=== PATIENT | female | born 1990 | race Caucasian/White ===

== ENCOUNTER 2017-02-11 22:30 | Inpatient (IN) | payer MEDICAID, OTHER ==
[~2017-02-11] VITALS: Ht 175.3 cm; Wt 102.6 kg
[~2017-02-11 22:30] MED LIST: ACAR50TA PO; PREN29TA PO; PROT40TA PO; ZOLO50TA PO; iron IV
[2017-02-11 22:33] VITALS: BP 129/91; PULSE 77; RESP 18; TEMP 98.3; O2SAT 97
[2017-02-12] VITALS (12 sets, daily range): BP systolic 113–138; BP diastolic 69–84; PULSE 67–82; RESP 16–18; TEMP 97–98.8; O2SAT 97–100
[2017-02-12] MEDS ORDERED: METF500T PO (00:31)
[2017-02-12] MEDS ORDERED: FOLI1TAB4 PO (00:31)
--- NOTE | 2017-02-12 00:44 | PD ---
HPI Chief Complaint: Abdominal Pain Time Seen by Provider: 00:40 Travel History International Travel<30 days: No Contact w/Intl Traveler<30days: No Traveled to known affect area: No History of Present Illness HPI 26-year-old female presents to the emergency department by private transportation for complaint of umbilical, epigastric, and chest pain. Patient states episode today was moderate to severe 6/10 in intensity. Patient had associated nausea with vomiting of stomach contents. No bilious emesis no coffee-ground emesis no hematemesis. Patient denies diarrhea and has been constipated without melena or hematochezia. Patient denies any dysuria frequency or urgency. Patient's last period was in December and not normal for her but has history of polycystic ovary disease with irregular menses. Patient is sexually active. Patient is 5 months . Patient states that she did have chicken nitrites today but typically has not had issues with gallbladder disease peptic ulcer disease or gastritis in the past. No history of pancreatitis. Patient had gastric sleeve by Dr. Conway February 2015. Patient states had similar less intense and short in duration episodes of umbilical, epigastric, and chest pain 1 week ago. Patient did not contact her surgeon at that time. Patient has not seen Dr. Conway approximately 1 year. [facility] Past Medical History Anxiety: Yes Cancer: No Cardiovascular Problems: No Diabetes: Yes Patient Takes Glucophage: Yes Diminished Hearing: No Endocrine: No GERD: Yes Genitourinary: No Hepatitis: No Hiatal Hernia: No Immune Disorder: No Musculoskeletal: Yes (OCCAS KIKA SHOULDER PAIN) Neurologic: No Psychiatric: Yes (ANXIETY) Reproductive: Yes (POLYCYSTIC OVARIAN SYNDROME) Respiratory: No Thyroid Disease: No Tetanus Vaccination: < 5 Years Influenza Vaccination: Yes ?: Unknown LMP: 01/04/17 Past Surgical History Abdominal Surgery: Yes (VERTICAL SLEEVE GASTRECTOMY) Body Medical Devices: NONE Joint Replacement: No Pacemaker: No Other Surgery: Yes Social History Alcohol Use: No Tobacco Use: No Substance Use: No Allergies-Medications (Allergen,Severity, Reaction): Coded Allergies: Adhesives (Verified Allergy, Severe, RASH, 02/11/17) Codeine (Verified Allergy, Severe, RASH, 02/11/17) Penicillin (Verified Allergy, Severe, FOAMING AT THE MOUTH, 02/11/17) Morphine (Unverified Adverse Reaction, Severe, 02/11/17) SIDE EFFECTS? HEADACHE, WARM, FLUSHED Reported Meds & Prescriptions Reported Meds & Active Scripts Active Reported Folate (Folic Acid) 1 Mg Tab 1 Mg PO DAILY Metformin (Metformin HCl) 500 Mg Tab 500 Mg PO BIDPC With meals [iron] Unknown Dose IV MONTHLY Protonix (Pantoprazole Sodium) 40 Mg Tab 40 Mg PO DAILY Zoloft (Sertraline HCl) 50 Mg Tab 50 Mg PO DAILY Plus Iron 29-1 mg ( Vit-Iron Carbonyl) 1 Tab Tab 1 Tab PO DAILY Review of Systems Except as stated in HPI: all other systems reviewed are Neg General / Constitutional: No: Fever, Chills HENT: No: Congestion Cardiovascular: Positive: Chest Pain or Discomfort Respiratory: No: Shortness of Breath Gastrointestinal: Positive: Nausea, Vomiting, Abdominal Pain Genitourinary: No: Flank Pain Musculoskeletal: No: Myalgias, Limited ROM Skin: No Rash Neurologic: No: Weakness Psychiatric: No: Anxiety Hematologic/Lymphatic: No: Easy Bruising Physical Exam Narrative GENERAL: Well-developed well-nourished female in no acute distress no respiratory distress SKIN: Warm and dry. HEAD: Normocephalic. EYES: No scleral icterus. No injection or drainage. NECK: Supple, trachea midline. No JVD or lymphadenopathy. CARDIOVASCULAR: Regular rate and rhythm without murmurs, gallops, or rubs. RESPIRATORY: Breath sounds equal bilaterally. No accessory muscle use. GASTROINTESTINAL: Abdomen soft, epigastric right upper quadrant tenderness to direct palpation without guarding or rebound, nondistended. MUSCULOSKELETAL: No cyanosis, or edema. BACK: Nontender without obvious deformity. No CVA tenderness. Data Data Last Documented VS Vital Signs Date Time Temp Pulse Resp B/P Pulse Ox O2 Delivery O2 Flow Rate FiO2 02/12/17 01:53 77 18 138/78 99 Room Air 02/11/17 22:33 98.3 Orders Complete Blood Count With Diff (02/12/17 00:40) Comprehensive Metabolic Panel (02/12/17 00:40) Lipase (02/12/17 00:40) Urinalysis - C+S If Indicated (02/12/17 00:40) Ct Abd/Pel W Iv Contrast(Rout) (02/12/17 00:40) Iv Access Insert/Monitor (02/12/17 00:40) Ecg Monitoring (02/12/17 00:40) Oximetry (02/12/17 00:40) Sodium Chloride 0.9% Flush (Ns Flush) (02/12/17 00:45) Ed Urine Pregnancytest Poc (02/12/17 00:40) Iohexol 350 Inj (Omnipaque 350 Inj) (02/12/17 01:41) Admit Order (Ed Use Only) (02/12/17 ) ^ Saline Lock (02/12/17 02:45) Resp Oxygen Trae C Titrat 1-4 L (02/12/17 ) Notify Dr: Other (02/12/17 02:45) Sodium Chloride 0.9% Flush (Ns Flush) (02/12/17 09:00) Sodium Chloride 0.9% Flush (Ns Flush) (02/12/17 02:45) NPO (02/12/17 02:47) Labs Laboratory Tests Test 02/12/17 01:00 White Blood Count 10.1 TH/MM3 Red Blood Count 4.87 MIL/MM3 Hemoglobin 13.9 GM/DL Hematocrit 40.4 % Mean Corpuscular Volume 83.0 FL Mean Corpuscular Hemoglobin 28.6 PG Mean Corpuscular Hemoglobin 34.5 % Concent Red Cell Distribution Width 12.3 % Platelet Count 326 TH/MM3 Mean Platelet Volume 6.6 FL Neutrophils (%) (Auto) 75.8 % Lymphocytes (%) (Auto) 16.8 % Monocytes (%) (Auto) 5.1 % Eosinophils (%) (Auto) 1.0 % Basophils (%) (Auto) 1.3 % Neutrophils # (Auto) 7.7 TH/MM3 Lymphocytes # (Auto) 1.7 TH/MM3 Monocytes # (Auto) 0.5 TH/MM3 Eosinophils # (Auto) 0.1 TH/MM3 Basophils # (Auto) 0.1 TH/MM3 CBC Comment DIFF FINAL Differential Comment Urine Color YELLOW Urine Turbidity CLEAR Urine pH 6.0 Urine Specific [place] 1.031 Urine Protein NEG mg/dL Urine Glucose (UA) NEG mg/dL Urine Ketones NEG mg/dL Urine Occult Blood NEG Urine Nitrite NEG Urine Bilirubin NEG Urine Leukocyte Esterase NEG Urine RBC 0-2 /hpf Urine WBC 0-2 /hpf Urine Squamous Epithelial 6-8 /hpf Cells Urine Bacteria RARE /hpf Microscopic Urinalysis Comment CULT NOT INDICATED Sodium Level 141 MEQ/L Potassium Level 3.8 MEQ/L Chloride Level 105 MEQ/L Carbon Dioxide Level 27.6 MEQ/L Anion Gap 8 MEQ/L Blood Urea Nitrogen 15 MG/DL Creatinine 0.74 MG/DL Estimat Glomerular Filtration 94 ML/MIN Rate Random Glucose 98 MG/DL Calcium Level 9.2 MG/DL Total Bilirubin 0.3 MG/DL Aspartate Amino Transf 25 U/L (AST/SGOT) Alanine Aminotransferase 31 U/L (ALT/SGPT) Alkaline Phosphatase 44 U/L Total Protein 8.0 GM/DL Albumin 4.2 GM/DL Lipase 3163 U/L MDM Medical Decision Making Medical Screen Exam Complete: Yes Emergency Medical Condition: Yes Medical Record Reviewed: Yes Interpretation(s) lipase: 3,163, elevated poc hcg: negative UA: grossly wnl Last Impressions Abdomen/Pelvis CT 02/12/17 0040 Signed Impressions: Service Date/Time: Sunday, February 12, 2017 01:31 - CONCLUSION: 1. No acute abnormality. 2. 2.5 cm left ovarian cyst. Bruce Gramajo Jr., MD CBC & BMP Diagram 02/12/17 01:00 Differential Diagnosis Abdominal pain, peptic ulcer disease, biliary colic, gastric sleeve complications, gastroenteritis, dehydration, Narrative Course IV access obtained specimens collected and sent for resulting [id number] tests ordered CT abdomen and pelvis with IV contrast ordered Patient given bolus of IV fluids and Zofran CBC with automated differential complete metabolic panel and urinalysis values found to be in normal range; [id number] hCG negative Lipase elevated at 3,163 consistent with pancreatitis; CT abdomen and pelvis pending CT resulted reveals no acute intra-abdominal or pelvic abnormality; identified to have an ovarian cyst Patient resting comfortably aware of lab results and imaging results and recommendation for admission; patient's case discussed with on-call [facility] Physician Communication Physician Communication case discussed with Dr Guajardo for admission Diagnosis Primary Impression: Pancreatitis Qualified Code: K85.90 - Acute pancreatitis, unspecified complication status, unspecified pancreatitis type Admitting Information Admitting Physician Requests: Observation Natasha Sam MD Feb 12, 2017 00:44 Natasha Sam MD Feb 12, 2017 00:44
[2017-02-12] MEDS ORDERED: SODIUM CHLORIDE 0.9% FLUSH 10 ML FLUSH IV FLUSH PRN ×2 (00:45→03:00)
[2017-02-12 01:07] LABS: BLOOD, URINE NEG (NEG); GLUCOSE,URINE NEG (NEG); KETONE, URINE NEG (NEG); NITRITE,URINE NEG (NEG)
[2017-02-12 01:09] LABS: AUTOMATED NEUTROPHIL # 7.7 TH/MM3 (1.8-7.7); BASOPHIL # 0.1 TH/MM3 (0-0.2); BASOPHIL % 1.3 % (0.0-2.0); EOSINOPHIL # 0.1 TH/MM3 (0-0.4); HEMATOCRIT 40.4 % (35.0-46.0); LYMPH % 16.8 % (9.0-44.0); LYMPHOCYTE # 1.7 TH/MM3 (1.0-4.8); MEAN CORPUSCULAR HEMOGLOBIN 28.6 PG (27.0-34.0); MEAN CORPUSCULAR HGB CONC 34.5 % (32.0-36.0); MONO % 5.1 % (0.0-8.0); NEUT % 75.8 % (16.0-70.0); PLATELET COUNT 326 TH/MM3 (150-450); RED BLOOD COUNT 4.87 MIL/MM3 (4.00-5.30); RED CELL DISTRIBUTION WIDTH 12.3 % (11.6-17.2); WHITE BLOOD COUNT 10.1 TH/MM3 (4.0-11.0)
[2017-02-12 01:13] LABS: BACTERIA, URINE RARE /hpf; COMMENT (UR) CULT NOT INDICATED; CULTURE IF INDICATED CULT NOT INDICATED; RBC, URINE 0-2 /hpf (0-3); URINE COLOR YELLOW (YELLW/STRAW); WBC, URINE 0-2 /hpf (0-5)
[2017-02-12 01:14] LABS: CHLORIDE 105 MEQ/L (98-107); HEMO FLAGS DIFF FINAL; POTASSIUM 3.8 MEQ/L (3.5-5.1); SODIUM (NA) 141 MEQ/L (136-145)
[2017-02-12 01:18] LABS: ANION GAP 8 MEQ/L (5-15); BICARBONATE 27.6 MEQ/L (21.0-32.0); BLOOD UREA NITROGEN 15 MG/DL (7-18)
[2017-02-12 01:21] LABS: ALT (GPT) 31 U/L (10-53); AST (GOT) 25 U/L (15-37); GLOMERULAR FILTRATION RATE 94 ML/MIN (>89)
[2017-02-12 01:22] LABS: TOTAL BILIRUBIN ADULT 0.3 MG/DL (0.2-1.0)
[2017-02-12 01:23] LABS: ALKALINE PHOSPHATASE 44 U/L (45-117)
[2017-02-12] MEDS ORDERED: IOHEXOL 350 MG/ML 10 ML VIAL (for RAD DIAG) IV ONE (01:41)
--- NOTE | 2017-02-12 02:00 | RADHPO ---
EXAM DATE/TIME: 02/12/2017 01:31 [facility] COMPARISON: No previous studies available for comparison. INDICATIONS : Epigastric pain with nausea and vomiting. IV CONTRAST: 95 cc Omnipaque 350 (iohexol) IV ORAL CONTRAST: No oral contrast ingested. RADIATION DOSE: 20.79 CTDIvol (mGy) MEDICAL HISTORY : Gastroesophageal reflux disease. Diabetes. Polycystic ovarian syndrome. SURGICAL HISTORY : Vertical sleeve gastrectomy. ENCOUNTER: Initial ACUITY: 1 day PAIN SCALE: 6/10 LOCATION: Abdomen. TECHNIQUE: Volumetric scanning of the abdomen and pelvis was performed. Using automated exposure control and ad justment of the mA and/or kV according to patient size, radiation dose was kept as low as reasonably achievable to obtain optimal diagnostic quality images. FINDINGS: LOWER LUNGS: The visualized lower lungs are clear. LIVER: Homogeneous density without lesion. There is no dilation of the biliary tree. No calcified gallston es. SPLEEN: Normal size without lesion. PANCREAS: Within normal limits. KIDNEYS: Normal in size and shape. There is no mass, stone or hydronephrosis. ADRENAL GLANDS: Within normal limits. VASCULAR: There is no aortic aneurysm. BOWEL/MESENTERY: The stomach, small bowel, and colon demonstrate no acute abnormality. There is no free intraperitone al air or fluid. ABDOMINAL WALL: Within normal limits. RETROPERITONEUM: There is no lymphadenopathy. BLADDER: No wall thickening or mass. REPRODUCTIVE: A 2.5 cm left ovarian cyst is observed. Right ovary and uterus are unremarkable. INGUINAL: There is no lymphadenopathy or hernia. MUSCULOSKELETAL: Within normal limits for patient age. CONCLUSION: 1. No acute abnormality. 2. 2.5 cm left ovarian cyst. Bruce Gramajo Jr., MD on February 12, 2017 at 1:56 Board Certified Radiologist. This report was verified electronically.
[2017-02-12] MEDS ORDERED: SODIUM CHLORIDE 0.9% FLUSH 10 ML FLUSH IVF PRN (02:45)
[2017-02-12] MEDS ORDERED: HYDROmorphone HCL PF 1 MG/ML VIAL IV PRN ×2 (03:00)
[2017-02-12] MEDS ORDERED: BISACODYL 10 MG SUPP RECTAL PRN (03:00)
[2017-02-12] MEDS ORDERED: ACETAMINOPHEN 325 MG TAB PO PRN (03:00)
[2017-02-12] MEDS ORDERED: ONDANSETRON HCL 4 MG/2 ML VIAL IVP PRN (03:00)
[2017-02-12] MEDS ORDERED: PANTOPRAZOLE SODIUM 40 MG VIAL IV PUSH ONE (03:00)
[2017-02-12] MEDS: SODIUM CHLOR 0.9% 1000 ML INJ 1,000 ML IV SCH ×2 (03:07→11:02)
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
[2017-02-12] MEDS ORDERED: SODIUM CHLORIDE 0.9% FLUSH 10 ML FLUSH IV FLUSH SCH (09:00)
[2017-02-12] MEDS: SERTRALINE HCL 50 MG TAB PO SCH (11:00)
[2017-02-12] MEDS: SODIUM CHLORIDE 0.9% FLUSH 10 ML FLUSH IV FLUSH SCH ×2 (11:01→21:04)
--- NOTE | 2017-02-12 12:42 | RADHPO ---
EXAM DATE/TIME: 02/12/2017 09:47 [facility] COMPARISON: CT ABDOMEN & PELVIS W CONTRAST, February 12, 2017, 1:31. INDICATIONS : Right upper quadrant pain. MEDICAL HISTORY : Gastroesophageal reflux disease. Polycystic ovarian syndrome. Diabetes. SURGICAL HISTORY : Vertical sleeve gastrectomy. ENCOUNTER: Initial ACUITY: 3 days PAIN SCORE: 4/10 LOCATION: Right upper quadrant MEASUREMENTS: LIVER: 20.8 cm length COMMON DUCT: 4 mm RIGHT KIDNEY: 11.7 x 5.5 x 6.7 cm FINDINGS: LIVER: Slightly increased echotexture without focal lesion or ductal dilatation. COMMON DUCT: No intraluminal mass or stone visualized. GALLBLADDER: Contracted lumen with a line of echogenic material showing posterior acoustic shadowing characteristi c of small, layering gallstones PANCREAS: The visualized portions are within normal limits. RIGHT KIDNEY: No evidence of hydronephrosis, stone, or mass. CONCLUSION: 1. Liver is prominent with some increased echogenicity suggestive of some degree of fatty infiltratio n. No focal mass lesion. 2. Small layering stones in the dependent portion of the gallbladder lumen. Gallbladder is contracted without significant mural thickening or pericholecystic fluid. Elvis Laurent MD on February 12, 2017 at 12:36 Board Certified Radiologist. This report was verified electronically.
[2017-02-12] MEDS: PANTOPRAZOLE SODIUM 40 MG VIAL IV PUSH SCH (21:03)
[2017-02-12] MEDS: ACETAMIN 325 MG/BUTALBITAL 50 MG/CAFFEINE 40 MG TAB PO PRN (21:34)
[2017-02-13] VITALS: BP 114/74; PULSE 63; RESP 18; TEMP 97.5; O2SAT 99
[2017-02-13] MEDS: SODIUM CHLOR 0.9% 1000 ML INJ 1,000 ML IV SCH ×2 (00:12→08:55)
[2017-02-13 07:23] LABS: AUTOMATED NEUTROPHIL # 3.9 TH/MM3 (1.8-7.7); BASOPHIL % 0.7 % (0.0-2.0); EOSINOPHIL # 0.1 TH/MM3 (0-0.4); EOSINOPHIL % 1.9 % (0.0-4.0); HEMATOCRIT 38.9 % (35.0-46.0); HEMO FLAGS DIFF FINAL; LYMPHOCYTE # 1.5 TH/MM3 (1.0-4.8); MEAN CELL VOLUME 84.9 FL (80.0-100.0); MEAN CORPUSCULAR HEMOGLOBIN 28.4 PG (27.0-34.0); MEAN CORPUSCULAR HGB CONC 33.4 % (32.0-36.0); MONO % 6.1 % (0.0-8.0); NEUT % 65.3 % (16.0-70.0); PLATELET COUNT 255 TH/MM3 (150-450); RED BLOOD COUNT 4.58 MIL/MM3 (4.00-5.30); RED CELL DISTRIBUTION WIDTH 12.3 % (11.6-17.2); WHITE BLOOD COUNT 5.9 TH/MM3 (4.0-11.0)
[2017-02-13 07:34] LABS: CHLORIDE 110 MEQ/L (98-107); POTASSIUM 3.7 MEQ/L (3.5-5.1); SODIUM (NA) 143 MEQ/L (136-145)
[2017-02-13 07:49] LABS: ALKALINE PHOSPHATASE 35 U/L (45-117); ALT (GPT) 21 U/L (10-53); ANION GAP 7 MEQ/L (5-15); AST (GOT) 12 U/L (15-37); BICARBONATE 25.8 MEQ/L (21.0-32.0); BLOOD UREA NITROGEN 8 MG/DL (7-18); GLOMERULAR FILTRATION RATE 102 ML/MIN (>89); TOTAL BILIRUBIN ADULT 0.6 MG/DL (0.2-1.0)
[2017-02-13 08:00] VITALS: BP 105/74; PULSE 71; RESP 18; TEMP 97.9; O2SAT 97; O2SAT 98
[2017-02-13] MEDS: SODIUM CHLORIDE 0.9% FLUSH 10 ML FLUSH IV FLUSH SCH (08:55)
[2017-02-13] MEDS: PANTOPRAZOLE SODIUM 40 MG VIAL IV PUSH SCH (08:55)
--- NOTE | 2017-02-13 10:06 | HHI.PR ---
Subjective Remarks Follow-up pancreatitis. Patient states that her abdominal pain has resolved. No nausea or vomiting. She does report a painful area of swelling in the vaginal region. She states that there was some bleeding from that area this morning. She denies vaginal bleeding or discharge, but describes bleeding from the area of swelling. Objective Vitals Vital Signs Date Time Temp Pulse Resp B/P Pulse Ox O2 Delivery O2 Flow Rate FiO2 02/13/17 08:00 97.9 71 18 105/74 98 02/13/17 00:00 97.5 63 18 114/74 99 02/12/17 20:00 98.0 67 18 121/78 99 02/12/17 19:34 97 21 02/12/17 16:00 98.5 73 18 113/72 97 02/12/17 15:32 20 02/12/17 12:00 97.0 77 16 133/69 98 I/O 02/12/17 02/12/17 02/12/17 02/13/17 02/13/17 02/13/17 07:00 15:00 23:00 07:00 15:00 23:00 Intake Total 0 ml 725 ml 1450 ml Balance 0 ml 725 ml 1450 ml Intake Oral 0 ml 725 ml IV Total 1450 ml # Voids 0 4 4 1 # Bowel Movements 0 1 1 Result Diagram: 02/13/17 0701 02/13/17 0701 Imaging Last Impressions Abdomen/Pelvis CT 02/12/17 0040 Signed Impressions: Service Date/Time: Sunday, February 12, 2017 01:31 - CONCLUSION: 1. No acute abnormality. 2. 2.5 cm left ovarian cyst. Bruce Gramajo Jr., MD Gall Bladder Ultrasound 02/12/17 0000 Signed Impressions: Service Date/Time: Sunday, February 12, 2017 09:47 - CONCLUSION: 1. Liver is prominent with some increased echogenicity suggestive of some degree of fatty infiltration. No focal mass lesion. 2. Small layering stones in the dependent portion of the gallbladder lumen. Gallbladder is contracted without significant mural thickening or pericholecystic fluid. Elvis Laurent MD Objective Remarks Patient examined with Misty Mchugh PA-C General: Obese female in no acute distress. Heart: Regular rate and rhythm. No murmur. Lungs: Clear to auscultation bilaterally. No wheezes, rales, or rhonchi. Breathing is nonlabored. Abdomen: Soft, nontender, nondistended. Extremities: No lower extremity edema. Psych: Alert and oriented. : There is a 1 cm area of swelling, possible fluctuance on the right labia majora. There is mild overlying erythema. No active bleeding or drainage. The area is tender to palpation. Procedures None Urinary Catheter: No Vascular Central Line Catheter: No A/P Problem List: (1) Pancreatitis ICD Code: K85.90 Status: Acute (2) Anxiety ICD Code: F41.9 Status: Acute (3) PCOS (polycystic ovarian syndrome) ICD Code: E28.2 Status: Acute Assessment and Plan 1. Acute pancreatitis: Uncertain etiology. Lipase is now within normal limits. Appreciate GI recommendations. HIDA scan ordered. 2. Anxiety: Continue Zoloft. 3. PCOS: Continue metformin. 4. DVT prophylaxis: SCDs, PIETRO hose. 5. Small abscess versus cyst, labia: Warm compresses. Monitor. If this does not worsen, would recommend outpatient follow-up with gynecology. Discharge Planning When cleared by gastroenterology. Problem Qualifiers (1) Pancreatitis: Qualified Code: K85.90 - Acute pancreatitis, unspecified complication status, unspecified pancreatitis type Cuate Rouse MD Feb 13, 2017 10:06
--- NOTE | 2017-02-13 11:11 | HHI.GIFU ---
GI Follow-up Note Consult Follow-up Subjective: Patient laying in bed comfortably, feeling better today.Awaiting hida scan.she states she had fatty foods yesterday, had 2 similar attacks in the past triggered by eggs . Objective: PHYSICAL EXAMINATION: Vitals signs stable No fever Vital Signs Date Time Temp Pulse Resp B/P Pulse Ox O2 Delivery O2 Flow Rate FiO2 02/13/17 08:00 97.9 71 18 105/74 98 HEENT: Pupils round and reactive to light; normocephalic; atraumatic; no jaundice. Throat is clear. NECK: Neck is supple, no JVD, no lymphadenopathy. CHEST: Chest is clear to auscultation and percussion. CARDIAC: Regular rate and rhythm with no murmur gallop or rubs. ABDOMEN: Soft, nondistended, nontender; no hepatosplenomegaly; bowel sounds are present in all four quadrants, obese EXTREMITIES: No clubbing, cyanosis, or edema. SKIN: Normal; no rash; no jaundice. DEPUTY SHERIFF GENERALIST: No focal deficits; alert and oriented times three. Available Data (labs, X- Rays, Procedues) : Laboratory Tests Test 02/12/17 02/13/17 01:00 07:01 White Blood Count 10.1 TH/MM3 5.9 TH/MM3 Red Blood Count 4.87 MIL/MM3 4.58 MIL/MM3 Hemoglobin 13.9 GM/DL 13.0 GM/DL Hematocrit 40.4 % 38.9 % Mean Corpuscular Volume 83.0 FL 84.9 FL Mean Corpuscular Hemoglobin 28.6 PG 28.4 PG Mean Corpuscular Hemoglobin 34.5 % 33.4 % Concent Red Cell Distribution Width 12.3 % 12.3 % Platelet Count 326 TH/MM3 255 TH/MM3 Mean Platelet Volume 6.6 FL 6.4 FL Neutrophils (%) (Auto) 75.8 % 65.3 % Lymphocytes (%) (Auto) 16.8 % 26.0 % Monocytes (%) (Auto) 5.1 % 6.1 % Eosinophils (%) (Auto) 1.0 % 1.9 % Basophils (%) (Auto) 1.3 % 0.7 % Neutrophils # (Auto) 7.7 TH/MM3 3.9 TH/MM3 Lymphocytes # (Auto) 1.7 TH/MM3 1.5 TH/MM3 Monocytes # (Auto) 0.5 TH/MM3 0.4 TH/MM3 Eosinophils # (Auto) 0.1 TH/MM3 0.1 TH/MM3 Basophils # (Auto) 0.1 TH/MM3 0.0 TH/MM3 CBC Comment DIFF FINAL DIFF FINAL Differential Comment Urine Color YELLOW Urine Turbidity CLEAR Urine pH 6.0 Urine Specific [place] 1.031 Urine Protein NEG mg/dL Urine Glucose (UA) NEG mg/dL Urine Ketones NEG mg/dL Urine Occult Blood NEG Urine Nitrite NEG Urine Bilirubin NEG Urine Leukocyte Esterase NEG Urine RBC 0-2 /hpf Urine WBC 0-2 /hpf Urine Squamous Epithelial 6-8 /hpf Cells Urine Bacteria RARE /hpf Microscopic Urinalysis Comment CULT NOT INDICATED Sodium Level 141 MEQ/L 143 MEQ/L Potassium Level 3.8 MEQ/L 3.7 MEQ/L Chloride Level 105 MEQ/L 110 MEQ/L Carbon Dioxide Level 27.6 MEQ/L 25.8 MEQ/L Anion Gap 8 MEQ/L 7 MEQ/L Blood Urea Nitrogen 15 MG/DL 8 MG/DL Creatinine 0.74 MG/DL 0.69 MG/DL Estimat Glomerular Filtration 94 ML/MIN 102 ML/MIN Rate Random Glucose 98 MG/DL 84 MG/DL Calcium Level 9.2 MG/DL 8.3 MG/DL Total Bilirubin 0.3 MG/DL 0.6 MG/DL Aspartate Amino Transf 25 U/L 12 U/L (AST/SGOT) Alanine Aminotransferase 31 U/L 21 U/L (ALT/SGPT) Alkaline Phosphatase 44 U/L 35 U/L Total Protein 8.0 GM/DL 6.7 GM/DL Albumin 4.2 GM/DL 3.4 GM/DL Lipase 3163 U/L 202 U/L ASSESSMENT/PLAN: gallstone pancreatitis-had similar episodes in the past- gallstones Recommendations advance diet as tolerated hida scan [facility] general surgery consult It was a pleasure seeing Joann Salinas. Thank you for this consult. Entered by: Diane Longo MD Feb 13, 2017 11:11
[2017-02-13 12:00] VITALS: BP 110/68; PULSE 73; RESP 18; TEMP 98.1; O2SAT 99
--- NOTE | 2017-02-13 13:43 | RADHPO ---
EXAM DATE/TIME: 02/13/2017 11:57 [facility] COMPARISON: No previous studies available for comparison. INDICATIONS : Abdominal pain with nausea and vomiting. DOSE: 4.1 mCi Tc99m Mebrofenin IV MEDICAL HISTORY : Diabetes mellitus type 2. Pancreatitis. SURGICAL HISTORY : Gastric sleeve. ENCOUNTER: Initial ACUITY: 1 day PAIN SCALE: 5/10 LOCATION: Right upper quadrant TECHNIQUE: Following the intravenous administration of radiotracer, dynamic sequential images were performed wit h continuous acquisition. FINDINGS: HEPATIC KINETICS: There is prompt uptake of radiotracer in the liver. No focal defects are seen. There is normal rate of washout from the hepatic parenchyma. BILIARY CLEARANCE: Activity is first seen in the extrahepatic biliary system at 10 minutes. There is normal excretion i nto the small bowel. GALLBLADDER: Activity is first seen in the gallbladder at 10 minutes. Common bile duct kinetics are normal and th ere is no evidence of biliary obstruction. BILIARY ENTRIC REFLUX: None observed. CONCLUSION: No sign of biliary obstruction. Dru Mccoy MD on February 13, 2017 at 13:40 Board Certified Radiologist. This report was verified electronically.
[2017-02-13] MEDS: ACETAMIN 325 MG/BUTALBITAL 50 MG/CAFFEINE 40 MG TAB PO PRN (13:51)
[2017-02-13] MEDS: SERTRALINE HCL 50 MG TAB PO SCH (13:52)
[2017-02-13 16:00] VITALS: BP 112/76; PULSE 60; RESP 18; TEMP 98.5; O2SAT 100
--- NOTE | 2017-02-13 18:45 | RADHPO ---
EXAM DATE/TIME: 02/13/2017 16:54 [facility] COMPARISON: BILIARY SCAN (HIDA), February 13, 2017, 11:57. US ABDOMEN - GALLBLADDER, February 12, 2017, 9:47. CT ABDO MEN & PELVIS W CONTRAST, February 12, 2017, 1:31. INDICATIONS : Pancreatitis. MEDICAL HISTORY : None. SURGICAL HISTORY : Gastric sleeve. ENCOUNTER: Initial ACUITY: 1 day PAIN SCORE: 5/10 LOCATION: Abdomen TECHNIQUE: Multiplanar, multisequence magnetic resonance imaging of the abdomen was performed. High-resolution 3D dataset was utilized to reconstruct maximum-intensity projection (MIP) images. FINDINGS: INTRAHEPATIC BILE DUCTS: Within normal limits. No significant anatomical variant is present. EXTRAHEPATIC BILE DUCTS: The common bile duct measures 6 mm No stone or filling defect is identified. GALLBLADDER: No stones, wall thickening, or pericholecystic fluid. LIVER: Normal size and signal intensity. No concerning liver lesion is identified on this non-contrast exam. PANCREAS: The main pancreatic duct is normal in size. There is no significant anatomical variant. Signal inte nsity is within normal limits. No mass is visualized on this non-contrast exam. The peripancreatic fat is intact. OTHER: The remaining visualized structures demonstrate no acute abnormality on this non-contrast exam. CONCLUSION: Negative MRCP. Normal dimension common hepatic duct and no filling defects seen within the gallbladd er. The configuration and appearance of the pancreas is normal on the noncontrast and chemical shift images. Bruce Day MD on February 13, 2017 at 18:40 Board Certified Radiologist. This report was verified electronically.
--- NOTE | 2017-02-13 18:47 | HHI.DCPOC ---
Discharge Care Plan Diagnosis: (1) Pancreatitis (2) Anxiety (3) PCOS (polycystic ovarian syndrome) Goals to Promote Your Health * To prevent worsening of your condition and complications * To maintain your health at the optimal level Directions to Meet Your Goals Take your medications as prescribed Follow your dietary instruction Follow activity as directed Keep your appointments as scheduled Take your immunizations and boosters as scheduled If your symptoms worsen call your PCP, if no PCP go to Urgent Care Center or Emergency Room Smoking is Dangerous to Your Health. Avoid second hand smoke Call the 24-hour hour crisis hotline for domestic abuse at Misty Mchugh Feb 13, 2017 18:47
--- NOTE | 2017-02-13 21:56 | MB ---
cc: KIRSTEN STEWART MD DATE OF CONSULTATION 02/13/[address] Rouse. REASON FOR CONSULTATION Gallstone pancreatitis. HISTORY OF PRESENT ILLNESS The patient is a 26-year-old female who presented to [facility] with recurrent epigastric pain. The patient states that she has had 6/10 pain which is now resolved and she has had this pain like this multiple episodes prior. The first time the patient has been hospitalized and was diagnosed with gallstone pancreatitis due to gallstones and elevated lipase. The patient currently denies any nausea, vomiting, abdominal pain, diarrhea, constipation, hematemesis, fevers, chills, night sweats or any other complaints. REVIEW OF SYSTEMS 12-point review of systems is conducted with the patient, is negative except for the pertinent positives mentioned above in history of present illness. PAST MEDICAL HISTORY 1. Polycystic ovarian disease, 2. Anxiety. PAST SURGICAL HISTORY Laparoscopic sleeve gastrectomy by Dr. Mortensen in 2014. MEDICATIONS 1. Folate. 2. Metformin. 3. Iron. 4. Protonix. 5. Zoloft. 6. vitamins ALLERGIES CODEINE PENICILLIN MORPHINE FAMILY HISTORY Multiple family members with gallbladder problems. SOCIAL HISTORY The patient denies alcohol, tobacco or illicit drug use. Has an at home. PHYSICAL EXAMINATION VITAL SIGNS: Blood pressure 112/76, heart rate 60, temperature 98.5 degrees. GENERAL: Patient is a female in no acute distress. She does not appear acute or chronically ill. She is obese. HEENT: Head is normocephalic, atraumatic. Pupils round, react and accommodate to light. Sclerae are anicteric. Mucous membranes are moist. NECK: Supple. No JVD. LUNGS: Clear to auscultation bilaterally. Nonlabored breathing pattern. HEART: Regular rate and rhythm. ABDOMEN: Soft, nontender to palpation, nondistended. No organomegaly. No ascites. No hernias. BACK: No CVA tenderness. EXTREMITIES: No clubbing, cyanosis or edema. NEUROLOGIC: The patient is awake, alert and oriented times four. Cranial nerves II-XII grossly intact. Nonfocal peripheral exam. LABORATORY DATA White blood cell 5.4, hemoglobin 13.0, lipase is 202 and within normal limits. IMAGING STUDIES MRCP shows no choledocholithiasis. CT scan - no acute abnormality. ASSESSMENT AND PLAN The patient is a 26-year-old female with mild acute gallstone pancreatitis now resolved. I recommend the patient stay in the hospital and we will arrange some elective laparoscopic cholecystectomy on Wednesday when the [facility] operating room is open. However the patient did decline this and says she would like to follow up with her surgeon, Dr. Conway. I contacted Dr. Mortensen and he states that he could see the patient on Wednesday in his office and set up surgery as an outpatient. She is amenable to this and understands that there is a very small but real risk that she could have recurrent pancreatitis in the interim and she agreed to accept that risk and will immediately represent to the emergency room if she has recurrent symptoms. She does understand that she need cholecystectomy to reduce the risk of recurrent pancreatitis. All questions were answered to her satisfaction. I agree with hospital discharge for follow-up with Dr. Conway on Wednesday. Thank you very much for the consultation. We will sign off. MD SALVADOR Sanchez/ /8:15 PM /9:38 PM MTDBrianna
--- NOTE | 2017-02-15 09:12 | MB ---
cc: MARLY GUZMAN M.D., MATTHEW DATE OF CONSULTATION: 01/24/2017. REASON FOR CONSULTATION: Acute pancreatitis, cholelithiasis. PATIENT OF: Cuate Rouse MD. HISTORY OF PRESENT ILLNESS: Ms. Salinas is a 26-year-old lady who presented with a first episode of pancreatitis. She delivered a baby five months ago. She has not been breast feeding. She does not drink any alcohol. She presents with abdominal pain, nausea, vomiting and elevated lipase. Workup so far has revealed cholelithiasis but no evidence of choledocholithiasis. REVIEW OF SYSTEMS: She currently feels better. Her abdominal pain has become minimal. No nausea or vomiting. No abdominal pain. Tolerating clears PAST MEDICAL HISTORY: 1. Polycystic ovarian syndrome. 2. Anxiety disorder. PAST SURGICAL HISTORY: 1. Gastric sleeve. 2. EGD and colonoscopy done about a year ago for reflux and hemorrhoids. MEDICATIONS ON ADMISSION: 1. Folic acid. 2. Metformin. 3. Protonix. 4. Zoloft. 5. vitamins. ALLERGIES: 1. CODEINE. 2. PENICILLIN. 3. MORPHINE. FAMILY HISTORY: Cholecystitis. SOCIAL HISTORY: No tobacco. No alcohol reported. PHYSICAL EXAMINATION: GENERAL: The physical exam reveals a well-nourished lady in no apparent distress. VITAL SIGNS: Stable. HEAD AND NECK: Anicteric sclerae. CHEST: Bilateral air entry with rales. ABDOMEN: Abdomen is soft, obese. Minimal tenderness to palpation. No guarding. No rigidity. GILL NET STRINGER: Nonfocal. LABORATORY DATA: Labs reveal white cell count of 10,000. Lipase 3163. Liver function tests are normal. IMAGING STUDIES: Ultrasound reveals cholelithiasis. CT scan of the abdomen and pelvis is essentially unremarkable. IMPRESSION: Probable biliary pancreatitis. RECOMMENDATIONS: 1. A HIDA scan has been ordered. 2. Aggressive hydration. 3. Clear liquid diet. 4. General surgery consult recommended. 5. Dr. Poole will follow over the weekend. Thank you for this referral. Marly Guzman MD /[facility] /6:29 PM /9:11 AM
== END 2017-02-13 19:36 | disposition home or self-care (01) | DRG 440 ==
LOC: PHED 22:30 → PHEDA 02-12 02:47 → OBSVTOIN 02-12 02:51 → PH3A 02-12 04:06
PROVIDERS: ADMIT Family Medicine; ATTEND Family Medicine
DX: K85.10 Biliary acute pancreatitis without necrosis or infection (principal); K80.20 Calculus of gallbladder without cholecystitis without obstruction; E11.9 Type 2 diabetes mellitus without complications; E28.2 Polycystic ovarian syndrome; N92.6 Irregular menstruation, unspecified; F41.9 Anxiety disorder, unspecified; K21.9 Gastro-esophageal reflux disease without esophagitis; K59.00 Constipation, unspecified; M25.512 Pain in left shoulder; M25.511 Pain in right shoulder; Z88.5 Allergy status to narcotic agent; Z88.0 Allergy status to penicillin; Z88.8 Allergy status to other drugs, medicaments and biological substances; Z91.048 Other nonmedicinal substance allergy status; Z79.84 Long term (current) use of oral hypoglycemic drugs
CPT/HCPCS: 74177; 74181; 76377; 76705; 78226; 80053; 81001; 83690; 84703; 85025; A9537; C9113; J7030; Q9967